=== PATIENT | male | born 1985 | race Caucasian/White ===

== ENCOUNTER 2024-08-15 20:09 | Emergency (ER) | payer OTHER, SELFPAY ==
[2024-08-15 20:23] VITALS: BP 194/125
[2024-08-15 20:49] LABS: Hematocrit 41.9 % (39.0-52.0); Hemoglobin 14.1 g/dL (13.0-18.0); Mean Corp Hgb Conc. 33.7 g/dL (33.0-37.0); Mean Corpuscular Hgb 29.6 pg (27.0-31.0); Mean Platelet Volume 9.8 fL (7.4-10.4); Platelet Count 291 10^3/uL (130-400); Red Blood Cell Count 4.76 10^6/uL (4.70-6.10); Red Cell Dist. Width 12.4 % (11.5-14.5); White Blood Cell Count 13.7 10^3/uL (4.8-10.8)
[2024-08-15 21:03] LABS: ALT (SGPT) 37 U/L (0-50); AST (SGOT) 26 U/L (17-59); Albumin 4.6 g/dl (3.5-5.0); Alkaline Phosphatase 86 U/L (38-126); Blood Urea Nitrogen 13 mg/dl (9-20); Calcium 9.5 mg/dl (8.4-10.2); Carbon Dioxide 27 mmol/L (22-30); Chloride 103 mmol/L (98-107); Glucose 100 mg/dl (70-99); Potassium 4.4 mmol/L (3.5-5.1); Sodium 140 mmol/L (135-145); Total Bilirubin 0.7 mg/dl (0.2-1.3); Total Protein 7.1 g/dl (6.3-8.2); eGFR > 60.00
[2024-08-15 21:14] LABS: % Eosinophils 3.7 % (0-6); % Lymphocytes 36.9 % (20.5-51.1); % Monocytes 7.1 % (1.7-9.3); % Neutrophils 50.3 % (42.2-75.2); Absolute Basophils 0.1 10^3/uL (0-0.2); Absolute Eosinophils 0.5 10^3/uL (0-0.7); Absolute Immature Granulocytes 0.1 10^3/uL (0-0.05); Absolute Neutrophils 6.9 10^3/uL (1.4-6.5); Nucleated Red Blood Cells % 0 % (-)
--- NOTE | 2024-08-15 22:58 | ED.GENMED ---
History of Present Illness
General
Chief Complaint: Abdominal Pain
Source: patient
Exam Limitations: none
Time Seen by Provider: 08/15/24 22:56
Nursing documentation reviewed up to this point in time: agreed with
History of Present Illness
History of Present Illness:
This a 39-year-old male with a past medical history of hypertension on losartan, IBS, prostatic hypertrophy presents emergency department today with concerns of right lower quadrant abdominal pain. Patient reports that this has been going on for
the past 5 days. Patient reports that he has a history of IBS and at first when he started the symptoms, he thought it was related to his IBS, however symptoms did not relieve with a bowel movement. He reports that during the day he is more
comfortable but his pain gets worse at night. The pain is worse with movement. He has been eating however 1 day, the pain became so severe that he had 1 episode of vomiting. He denies any fevers or chills. He denies any contact with anyone sick.
He denies any previous history of intra-abdominal surgeries. He denies any hematuria, dysuria, urinary frequency. He denies any chest pain shortness of breath, or other respiratory symptoms.
Past History
Past History
ED Past Medical History: None
ED Past Surgical History: None
Social History
Tobacco: Non-smoker
Alcohol: None
Drug: None
Personal:
Living: with family
Review of Systems
Review of Systems
All Other Systems: ROS reviewed and negative except as documented in HPI and ROS
Phy Exam
Physical Exam
Physical Exam:
General: Patient is well appearing and in no acute distress; non-toxic
Skin: Warm and dry, no rashes or lesions
Head: Normocephalic, atraumatic
Eyes: Sclera non-icteric. EOMs intact.
Cardiac: Regular rate and rhythm, no murmurs
Peripheral Vascular: No lower extremity swelling or edema
Pulm: Normal respiratory effort
Abdomen: Tenderness to palpation at McBurney's point with guarding, no rebound tenderness
Neuro: CN II-XII intact, no focal neurologic deficits.
Psychiatric: Appropriate mood and affect.
Course
Orders/Labs/Results
Orders:
Orders
08/15/24 20:31
Complete Blood Count/With Diff Urgent
Comprehensive Metabolic Panel Urgent
Lipase Urgent
Comment: ADD ON
08/15/24 23:05
CT Abd/pelvis W Iv Cont Urgent
Comment:
Reason For Exam: RLQ pain
08/15/24 23:06
Add On- LAB Urgent
Tests Added?: lipase
Urinalysis Reflex To Culture Urgent
Date Specimen was Collected: 08/16/24
Time Specimen was Collected: 00:19
08/15/24 23:07
Ketorolac [Toradol] 15 mg IV NOW STA
08/16/24 00:20
Urine Microscopic Reflex Cult Urgent
Urine Culture Urgent
NATALEE Source: U
Specimen Description:
Date Specimen was Collected: 08/16/24
Time Specimen was Collected: 00:19
08/16/24 01:00
0.9% Sodium Chloride 500 ml [Nss] 500 ml IV As Directed mls/hr
Abnormal Lab Results
08/15/24 08/16/24
20: 00:20
WBC 13.7 H 10^3/uL
(4.8-10.8)
Abs Immat Gran (auto) 0.1 H 10^3/uL
(0-0.05)
Absolute Neuts (auto) 6.9 H 10^3/uL
(1.4-6.5)
Absolute Lymphs (auto) 5.0 H 10^3/uL
(1.2-3.4)
Absolute Monos (auto) 1.0 H 10^3/uL
(0.1-0.6)
Immature Gran % 1.0 H %
(0-0.5)
Glucose 100 H mg/dl
(70-99)
Leukocyte Esterase Rfl 1+ A
(Negative)
Urine RBC 3-6 A /HPF
(0-2)
Urine WBC (Reflex) 11-15 A /HPF
(0-5)
Urine Bacteria (Reflex) Moderate A
(Negative)
Urine Albumin (Reflex) 1+ A
(Neg - Trace)
08/15/24 20:31
08/15/24 20:31
Vital Signs
Initial and Last Documented VS:
Initial Vital Signs
Temp Pulse Resp BP Pulse Ox
98.0 F 73 16 194/125 99
08/15/24 20:23 08/15/24 20:23 08/15/24 20:23 08/15/24 20:23 08/15/24 20:23
Last Documented Vital Signs
Temp Pulse Resp BP Pulse Ox
98.0 F 70 16 130/105 97
08/15/24 20:23 08/16/24 01:25 08/16/24 01:25 08/16/24 01:00 08/16/24 01:15
MDM/Problems Addressed
Differential Diagnosis Includes:
Differentials include appendicitis, IBS exacerbation, diverticulitis, nephrolithiasis
MDM/Problems Addressed:
39-year-old male presents emergency department today with concerns of abdominal pain for the past few days. It has been persistent and while he does have IBS, he states that he is in rib pain is persistently in long before. Physical exam he is
well-appearing no acute distress, he is acutely hypertensive however he did not take his blood pressure medication today. Will give pain medication and monitor blood pressure response. Will send for CT scan.
CBC shows mild leukocytosis and CMP is unremarkable. CAT scan reveals enhancement of the right ureter with trace surrounding stranding concerning for infection. Patient states that he has history of BPH and has had a UTI in the past. Urinalysis
shows moderate bacteria and leukocyte esterase. Will start on cefpodoxime. Return precautions discussed, patient stable for discharge.
*Pulse Oximetry
Patient hypoxic: no
*Critical Care Note
Total Time (30-74mins, 75-104mins- exclusive of procedures): Not Applicable
Data Reviewed
Review of Other/Old Records Reveals: Records (Seen in ER physician augmentation from 05/13/2017 patient seen for right flank pain and lower abdominal pain)
Source: patient and records
ED Attending Note
-
Portions of this chart may have been created with voice recognition software.� Occasional wrong word or��sound alike� substitutions may have occurred due to the inherent limitations of voice recognition software.
Discharge Plan
Departure
Patient Disposition: Home (Routine Discharge)
Date of Disposition: 08/16/24
Time of Disposition: 01:27
Patient with high blood pressure during this ER visit?: Yes
Condition: Good
Discharge Problem:
Urinary tract infection
Instructions: BLOOD PRESSURE, Urinary Tract Infection - Men
Prescriptions:
New
cefpodoxime 200 mg tablet
200 mg PO BID 10 Days Qty: 20 0RF
No Action
oxycodone-acetaminophen 5 MG/325 MG tablet
1 tab PO Q6HPRN PRN (Reason: pain) Qty: 12 0RF
tamsulosin 0.4 MG capsule
0.4 mg PO DAILY Qty: 10 0RF
ondansetron 4 MG tablet,disintegrating
4 mg PO TIDPRN PRN (Reason: nausea/vomiting) Qty: 12 0RF
Referrals:
Isidoro Ward MD [Family Provider] -
Activity Restrictions/Additional Instructions:
Cefpodoxime has been sent to your pharmacy. Please take 1 tablet twice daily for 10 days. Please follow-up with your primary care provider.
PLEASE RETURN EMERGENCY DEPARTMENT SHOULD YOU DEVELOP CHEST PAIN, SHORTNESS OF BREATH, FEVERS OR CHILLS, BLOOD IN YOUR URINE, NAUSEA AND VOMITING, OR ANY OTHER SIGNS OR SYMPTOMS WORRISOME TO YOU
Interventions
Interventions:
*Risk Screen - Suicide Last Done: 08/15/24 20:23
*General Assessment Last Done: 08/15/24 20:23
*Neglect/Abuse Screening Last Done: 08/15/24 20:23
*ED- Fall Risk Assessment Last Done: 08/15/24 20:23
*ED COVID-19 Vaccine History Last Done: 08/15/24 20:23
*Nursing Disposition Last Done: 08/16/24 01:32
GD-Qlohnz-Vxehgpzkts Assessment Last Done: 08/15/24 23:08
Discharge Date and Time
Discharge Date/Time: 08/16/24 01:34
Print Language: ARMENIAN
[2024-08-15 23:07] VITALS: BP 141/93
[2024-08-15 23:08] VITALS: BMI 39.8
[2024-08-15] MEDS: TORADOL 15 MG IV (23:17)
[2024-08-15 23:42] LABS: Lipase 119 U/L (23-300)
[2024-08-16 00:19] VITALS: BP 132/90
[2024-08-16] MEDS: NSS 500 IV (00:49)
[2024-08-16 00:56] LABS: Urine Albumin 1+ (Neg - Trace); Urine Bilirubin Negative (Negative); Urine Character Clear (Clear); Urine Color Yellow; Urine Glucose Negative (Negative); Urine Ketone Negative (Negative); Urine Leukocyte 1+ (Negative); Urine Nitrite Negative (Negative); Urine Occult Blood Negative (Negative); Urine Urobilinogen Negative (Neg - 1+)
[2024-08-16 01:00] VITALS: BP 130/105
[2024-08-16 01:18] LABS: Urine Amorphous Seen; Urine Mucus Moderate; Urine Squamous Cell >30 /LPF (Few)
[2024-08-16 01:19] LABS: Urine Bacteria Moderate (Negative)
== END 2024-08-16 01:34 | disposition home or self-care (01) ==
LOC: EMR 20:09
PROVIDERS: Emergency Medicine; Physician Assistant; EMERGENCY PHYSICIAN Student in an Organized Health Care Education/Training Program; FAMILY PHYSICIAN Family Medicine
DX: N39.0 Urinary tract infection, site not specified (principal); I10 Essential (primary) hypertension
CPT/HCPCS: 99284; 96374; 96361; 74177; 80053; 81003; 81015; 83690; 85025; 87086; Q9967